=== PATIENT | female | born 1960 | race Caucasian/White ===

== ENCOUNTER 2021-01-10 09:04 | Outpatient (CLI) | payer BC, SELFPAY ==
--- NOTE | ~2021-01-10 | US_ITS ---
EXAMINATION: US retroperitoneal duplex ltd DATE: 01/10/2021 09:53 INDICATION: hypertension TECHNIQUE: Multiple grayscale, color Doppler, and pulsed Doppler images of the kidneys and renal lizy katie were obtained. COMPARISON: None. FINDINGS: The aorta peak systolic velocity is 50 cm/s. The right renal artery peak systolic velocity is 86 cm/s in the proximal segment, 169 cm/s in the mid segment, and 130 cm/s in the distal segment. The left r enal artery peak systolic velocity is 74 cm/s in the proximal segment, 126 cm/s in the mid segment, a nd 126 cm/s in the distal segment. IMPRESSION: 1. No Doppler evidence of renal artery stenosis. Reviewed, dictated and finalized at location A.
--- NOTE | ~2021-01-10 | US_ITS ---
EXAMINATION: US thyroid DATE: 01/10/2021 09:53 INDICATION: Thyroid nodule TECHNIQUE: Multiple ultrasound images of the thyroid were obtained. COMPARISON: None. FINDINGS: The right thyroid lobe measures 12.4 x 5.3 x 7.8 cm. There is a large heterogeneous ISO to hypoechoic solid mass with smooth margins and without echogenic foci. (TI-RADS 4, moderately suspicious , FNA i f >=1.5 cm, annual followup is >=1 cm) Which occupies the majority of the right thyroid lobe measuri ng at least 8.5 x 4.5 x 6.7 cm. The left thyroid lobe measures 4.3 x 2.0 x 2.0 cm. No discrete nodul es identified in the left thyroid lobe. IMPRESSION: 1. 8.5 similar TI-RADS 4 right thyroid mass for which ultrasound-guided biopsy is strongly recommende d. Reviewed, dictated and finalized at location A. IMPRESSION: 1. 8.5 similar TI-RADS 4 right thyroid mass for which ultrasound-guided biopsy is strongly recommended.
== END 2021-01-10 09:05 ==
PROVIDERS: PCP Student in an Organized Health Care Education/Training Program; Visit Provider Student in an Organized Health Care Education/Training Program
DX: E04.1 Nontoxic single thyroid nodule (principal); I10 Essential (primary) hypertension
CPT/HCPCS: 76536; 93976